=== PATIENT | male | born 1975 | race Two or more races ===

== ENCOUNTER → 2018-12-11 | Outpatient (CLI) | payer BC ==
--- NOTE | 2018-12-11 15:11 | CT ---
EXAMINATION TYPE: CT abdomen pelvis wo/w con DATE OF EXAM: 12/11/2018 COMPARISON: HISTORY: LUQ pain for 3-[address] DLP: 2297.4 mGycm Automated exposure control for dose reduction was used. TECHNIQUE: Helical acquisition of images was performed from the lung bases through the pelvis. CONTRAST: Performed with Oral Contrast and without and with IV Contrast, patient injected with 100 mL of Isovue 300. FINDINGS: LUNG BASES: 7 mm right lower lobe lung nodule is present on axial image #9, punctate subpleural nodul es in the left lower lobe image 7 as well as left lower lobe pulmonary nodule on axial image 80 measu res 5 mm. LIVER/GB: Low-attenuation within the liver could be due to hepatic steatosis, liver is enlarged. Gall bladder is normal. PANCREAS: No significant abnormality is seen. SPLEEN: Possible small hemangioma axial image 31 ADRENALS: No significant abnormality is seen. KIDNEYS: No significant abnormality is seen. FREE AIR: No free air is visualized. RETROPERITONEAL ADENOPATHY: None visualized REPRODUCTIVE ORGANS: No significant abnormality is seen URINARY BLADDER: No significant abnormality is seen. PELVIC ADENOPATHY: None visualized. OSSEOUS STRUCTURES: No significant abnormality is seen. BOWEL: No significant abnormality is seen. The appendix is normal IMPRESSION: HEPATOMEGALY, HEPATIC STEATOSIS. POSSIBLE SUBCENTIMETER HEMANGIOMA WITHIN THE SPLEEN.
== END | disposition home or self-care (01) ==
LOC: RADCTMAIN 12:35
PROVIDERS: ATTEND Internal Medicine
DX: K76.0 Fatty (change of) liver, not elsewhere classified (principal); R16.0 Hepatomegaly, not elsewhere classified
CPT/HCPCS: 74178; Q9967